=== PATIENT | female | born 1945 ===

== ENCOUNTER 2020-12-18 10:30 | Outpatient (REF) | payer MEDICARE, MEDICAID, SELFPAY ==
--- NOTE | ~2020-12-18 | US_ITS ---
EXAMINATION: US RETROPERITONEAL LIMITED (RENAL ONLY) CLINICAL INFORMATION: Calculus of kidney. COMPARISON: Renal ultrasound 11/28/2019 and 05/24/2015. X-ray abdomen KUB 11/24/2018. TECHNIQUE: Real-time imaging of the kidneys. FINDINGS: RIGHT KIDNEY: 8.4 x 4.9 x 4.6 cm (SAG x AP x TRV). The kidney is normal in size, contour, and echogenicity. Renal cortical thickness is normal. There are 2 small 2 mm stones in the mid and lower pole. No focal parenchymal lesions or hydronephrosis. LEFT KIDNEY: 9.0 x 4.4 x 4.3 cm (SAG x AP x TRV). The kidney is normal in size, contour, and echogenicity. Renal cortical thickness is normal. There is a 3 x 6 mm stone in the midpole. No focal parenchymal lesions or hydronephrosis. US/US renal BI IMPRESSION: Bilateral renal stones.
== END 2020-12-18 10:31 | disposition home or self-care (01) ==
LOC: HO.US 10:30
PROVIDERS: PCP Internal Medicine; Visit Provider Urology
DX: N20.0 Calculus of kidney (principal)
CPT/HCPCS: 76775

== ENCOUNTER → 2021-01-29 11:53 | Outpatient (BNVA) | payer MEDICARE, MEDICAID, SELFPAY | PROVIDERS: PCP Internal Medicine; Visit Provider Urology | CPT/HCPCS: Q3014 ==

== ENCOUNTER → 2021-07-22 10:33 | Outpatient (BNVA) | payer MEDICARE, MEDICAID, SELFPAY | PROVIDERS: PCP Internal Medicine | DX: N20.0 Calculus of kidney (principal); R35.0 Frequency of micturition | CPT/HCPCS: 99212 ==

== ENCOUNTER → 2021-09-20 12:52 | Outpatient (BNVA) | payer MEDICARE, MEDICAID, SELFPAY | PROVIDERS: PCP Internal Medicine | DX: R35.0 Frequency of micturition (principal); N20.0 Calculus of kidney | CPT/HCPCS: Q3014 ==

== ENCOUNTER 2021-12-16 11:33 | Outpatient (REF) | payer MEDICARE, MEDICAID, SELFPAY ==
--- NOTE | ~2021-12-16 | US_ITS ---
EXAMINATION: US RETROPERITONEAL LIMITED (RENAL ONLY) CLINICAL INFORMATION: Calculus of kidney. COMPARISON: Renal ultrasound 12/18/2020 and 11/28/2019. TECHNIQUE: Real-time imaging of the kidneys. FINDINGS: RIGHT KIDNEY: 9.3 x 5.5 x 5.2 cm (SAG x AP x TRV). The kidney is normal in size, contour, and echogenicity. Renal cortical thickness is normal. There are 2 nonobstructive echogenic calculi in the upper pole measuring 0.2 x 0.3 x 0.2 cm and lower pole measuring 0.3 x 0.2 x 0.3 cm. No caliectasis seen. No focal parenchymal lesions or hydronephrosis. LEFT KIDNEY: 9.2 x 5.2 x 4.4 cm (SAG x AP x TRV). The kidney is normal in size, contour, and echogenicity. Renal cortical thickness is normal. There is a nonobstructive echogenic stone in the upper pole measuring 0.4 x 0.3 x 0.3 cm. No caliectasis seen. No focal parenchymal lesions or hydronephrosis. US/US renal BI IMPRESSION: Bilateral nonobstructive echogenic renal calculi.
== END 2021-12-16 11:34 | disposition home or self-care (01) ==
LOC: HO.HMGCX 11:33
PROVIDERS: Visit Provider Urology
DX: N20.0 Calculus of kidney (principal)
CPT/HCPCS: 76775

== ENCOUNTER → 2022-01-30 10:50 | Outpatient (BNVA) | payer MEDICARE, MEDICAID, SELFPAY | PROVIDERS: PCP Internal Medicine; Visit Provider Urology | DX: R39.15 Urgency of urination (principal); R35.0 Frequency of micturition; N20.0 Calculus of kidney | CPT/HCPCS: 99212 ==

== ENCOUNTER 2022-08-26 13:25 | Outpatient (REF) | payer MEDICARE, MEDICAID, SELFPAY ==
--- NOTE | ~2022-08-26 | XR_ITS ---
EXAMINATION: XR ABDOMEN KUB CLINICAL INDICATION: Calculus of ureter. COMPARISON: Ultrasound abdomen 12/16/2021 and 09/01/2022. TECHNIQUE: AP view of the abdomen. FINDINGS: There is small 3 mm radiopaque calculi upper/mid pole left kidney. No additional radiopaque calculi seen. The bowel gas pattern is nonspecific. 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 No aggressive lytic or sclerotic process seen. SI joints are symmetrical. XR/XR KUB IMPRESSION: 1. There is a 3 mm radiopaque calculi upper/mid pole left kidney. 2. No additional radiopaque calculi seen.
== END 2022-08-26 13:26 | disposition home or self-care (01) ==
LOC: HO.US 13:25
PROVIDERS: PCP Internal Medicine; Visit Provider Urology
DX: N20.0 Calculus of kidney (principal); N20.1 Calculus of ureter
CPT/HCPCS: 74018

== ENCOUNTER 2022-09-01 16:03 | Outpatient (REF) | payer MEDICARE, MEDICAID, SELFPAY ==
--- NOTE | ~2022-09-01 | US_ITS ---
EXAMINATION: US RETROPERITONEAL LIMITED (RENAL ONLY) CLINICAL INFORMATION: Calculus of kidney. COMPARISON: X-ray KUB 08/26/2022. Renal ultrasound 12/16/2021 and 12/18/2020. TECHNIQUE: Real-time imaging of the kidneys. FINDINGS: RIGHT KIDNEY: 8.6 x 5.0 x 4.6 cm (SAG x AP x TRV). The kidney is normal in size, contour, and echogenicity. Renal cortical thickness is normal. No focal parenchymal lesions or hydronephrosis. 4 mm nonobstructing upper pole renal stone previously 3 mm and 4 mm nonobstructing lower pole renal stone, previously 3 mm. Additional 1 mm linear echogenic focus in the right lower pole possibly a vascular reflector versus an additional new stone. LEFT KIDNEY: 8.6 x 4.3 x 4.9 cm (SAG x AP x TRV). The kidney is normal in size, contour, and echogenicity. Renal cortical thickness is normal. No focal parenchymal lesions or hydronephrosis. 1 cm nonobstructing midpole renal stone, previously 4 mm. US/US renal BI IMPRESSION: 1. Bilateral nonobstructing renal stones measuring up to 1 cm on the left, increased from prior. 2. Additional 1 mm linear echogenic focus in the right lower pole possibly a vascular reflector versus an additional new stone.
== END 2022-09-01 16:04 | disposition home or self-care (01) ==
LOC: HO.US 16:03
PROVIDERS: PCP Internal Medicine; Visit Provider Urology
DX: N20.0 Calculus of kidney (principal)
CPT/HCPCS: 76775

== ENCOUNTER 2022-11-14 09:59 | Outpatient (AMB) | payer MEDICARE, MEDICAID, SELFPAY ==
--- NOTE | 2022-11-14 10:14 | MHC.OFFVIS ---
Intake Intake Visit Reasons: 1 yr follow up Intake Note: Patient is present for Follow Up Urology Med: Doxazosin, Vitamin B6, Trospium Antibiotic Allergy: None Blood Thinner: None Pharmacy: [facility] Allergies acetaminophen [Percocet] Allergy (Unknown, Verified 11/14/22 10:15) Unknown oxycodone [Percocet] Allergy (Unknown, Verified 11/14/22 10:15) Unknown Medication List - Last Reconciled 11/14/22 by Adán Donato MD amlodipine 5 mg PO DAILY atorvastatin 80 mg PO DAILY chlorthalidone 25 mg PO DAILY doxazosin 1 mg PO BEDTIME 30 days [id number] ala 200-25-25 mg (Odefsey) 1 tab PO DAILY meloxicam 7.5 mg PO DAILY metoprolol tartrate 50 mg PO DAILY pyridoxine (vitamin B6) 100 mg PO DAILY 90 days trospium 20 mg PO BID 30 days HPI HPI Comments History of Present Illness Details Ms Sebastian is a very pleasant female. She is a patient of Dr Warner. She is seen for the following urologic conditions. - nephrolithiasis - urinary urgency Has been on low-dose doxazosin with [facility] Nocturia 2-3 times per night Minimal stone burden on imaging Continue 12 month interval review Overactive bladder Previous trial oxybutynin [facility] Had initial success with fade Background HIV on combination therapy Trial low-dose alpha-nelly doxazosin 1 mg with [facility] per insurance Nephrolithiasis/Urolithiasis:? They are here for?further evaluation of nephrolithiasis ?Discussed imaging findings ?Continue with vitamin B6 ?Recommend to keep fluid intake.? Urolithiasis was diagnosed?a number of years ago.? The patient previously had kidney stones whose composition w?unknown.? Laboratory investigations include?no recent labs.? 24 Hour urine evaluation?none on file.? Prior treatment(s) include?observation, with dietary advice to increase fluids, decrease salt and watch protein intake ?11/30 vit B6 and Mag.? Prior imaging includes?a KUB x-ray 05/29 , showing radiodense stone(s), on the right, 2-5 mm ?09/29 , a KUB x-ray, showing radiodense stone(s), on the right, , 2-5 mm ?11/30 , a renal ultrasound, showing no evidence of stones ?12/01 , a KUB x-ray, showing radiodense stone(s) 2mm right ?12/02 , a KUB x-ray stable ?12/03 , a renal ultrasound, showing radiodense stone(s) - 3 mm left, 5 mm right - 01/03 renal ultrasound 6 mm left, 3 mm right - 01/04 renal ultrasound small 3 mm bilateral stones - 11/05 renal ultrasound bilateral small stones, KUB right stone 3 mm ? UA today shows?>7.0, specific gravity within normal range suggestive of adequate hydration today.? Current therapeutic plan will be?to continue with imaging surveillance.? [facility] Medical History Bilateral nephrolithiasis Urinary frequency Review of Systems Const Denies chills and Denies fever(s) Card Reports no additional complaints and Denies syncope Resp Denies cough GI Denies abdominal pain and Denies heartburn Reports as per HPI and Denies change in libido Neuro Denies syncope Psych Denies change in libido Endo Denies change in libido Physical Exam Const General: cooperative, healthy appearing, comfortable and no acute distress Orientation/consciousness: patient oriented x3 HEENT Face and sinus: Yes normal facial exam Mouth: moist mucous membranes Neck Neck: Yes normal visual inspection, Yes full ROM and Yes trachea midline Chest Chest palpation & inspection: normal inspection of the chest Resp Effort & Inspection: normal respiratory effort, able to speak in complete sentences and no respiratory distress GI Inspection: Yes normal to inspection Back/Spine/Pelvis Cervical Spine: normal cervical lordosis Thoracic/Lumbar Spine: thoracic and lumbar spine normal to inspection Skin General skin exam: no rashes or lesions noted Neuro General: patient oriented x3, gait normal, tone normal and moves all extremities Extrem General: Yes normal to inspection and Yes capillary refill normal Assessment & Plan Assessment & Plan (1) Urinary urgency: Code(s): R39.15 - Urgency of urination (2) Urinary frequency: Code(s): R35.0 - Frequency of micturition (3) Bilateral nephrolithiasis: Code(s): N20.0 - Calculus of kidney Plan Twelve month follow-up Orders: Orders US renal BI 364 Days N20.0 - Calculus of kidney Medications: Changed From doxazosin 1 mg PO BEDTIME 30 days 30 tabs 1RF N31.9 - Neuromuscular dysfunction of bladder, unspecified To doxazosin 1 mg PO BEDTIME 90 days 90 tabs 3RF N31.9 - Neuromuscular dysfunction of bladder, unspecified From trospium administer on an empty stomach 20 mg PO BID 30 days 60 tabs 1RF N20.0 - Calculus of kidney To trospium administer on an empty stomach 20 mg PO BID 90 days 180 tabs 3RF N20.0 - Calculus of kidney Refilled pyridoxine (vitamin B6) 100 mg PO DAILY 90 days 90 tabs 3RF N20.0 - Calculus of kidney Patient Instructions: Imaging studies, laboratory and physical exam results were discussed and reviewed in detail. No major barriers to patient understanding were identified. An opportunity to ask questions regarding the treatment plan was provided. All questions were answered. The patient expressed understanding and agreement with the above treatment plan. The patient is aware they should contact our office by phone for worsening of their current condition or the appearance of new urologic symptoms. Compliance is encouraged with any medications and followup testing that is ordered. It is a privilege to participate in the urologic care of your patient. If you have any questions or concerns regarding treatment for the above conditions, or other urologic issues, please do not hesitate to contact me. The office telephone contact is [phone]. This note is constructed using voice recognition software. While every effort has been made to ensure accuracy veneer jointer offbearer errors may have been included. Yours sincerely, Dr Adán Donato MD, [facility] - Urology Providers of Expert, Compassionate Care for the Genitourinary System Coding Level of Care Code Est Pt Level 4 (35502) Diagnoses Urinary urgency R39.15 Urinary frequency R35.0 Bilateral nephrolithiasis N20.0
== END 2022-11-14 10:44 | disposition home or self-care (01) ==
PROVIDERS: PCP Internal Medicine; Visit Provider Urology
DX: R39.15 Urgency of urination (principal); R35.0 Frequency of micturition; N20.0 Calculus of kidney
CPT/HCPCS: 99214

== ENCOUNTER → 2022-11-14 09:59 | Outpatient (BNVA) | payer MEDICARE, MEDICAID, SELFPAY | PROVIDERS: Visit Provider Urology | DX: N20.0 Calculus of kidney (principal); R39.15 Urgency of urination; R35.0 Frequency of micturition | CPT/HCPCS: 99212 ==

== ENCOUNTER 2023-11-10 10:25 | Outpatient (REF) | payer MEDICARE, MEDICAID, SELFPAY ==
--- NOTE | ~2023-11-10 | US_ITS ---
EXAMINATION: US RETROPERITONEAL COMPLETE (RENAL) CLINICAL INFORMATION: Calculus of kidney. COMPARISON: 09/01/2022. TECHNIQUE: Real-time imaging of the kidneys and bladder. Limited visualization due to bowel gas. FINDINGS: RIGHT KIDNEY: 8.9 x 5.8 x 5.7 cm (SAG x AP x TRV). No hydronephrosis. Renal calculi measure 6 mm lower pole, 6 mm mid pole, and 6 mm lower pole. Limited visualization. Renal cortical thickness is normal. LEFT KIDNEY: 9.1 x 5.5 x 4.7 cm (SAG x AP x TRV). No hydronephrosis. 6 mm mid pole calculus. Limited visualization. Renal cortical thickness is normal. US/US renal BI IMPRESSION: Bilateral nephrolithiasis. No hydronephrosis. Electronically signed by: Liset Montgomery MD 11/18/2023 10:30 AM EDT RP
== END 2023-11-10 10:26 | disposition home or self-care (01) ==
LOC: HO.US 10:25
PROVIDERS: PCP Internal Medicine; Visit Provider Urology
DX: N20.0 Calculus of kidney (principal)
CPT/HCPCS: 76775

== ENCOUNTER 2023-11-17 10:30 | Outpatient (AMB) | payer MEDICARE, MEDICAID, SELFPAY ==
--- NOTE | 2023-11-17 10:34 | MHC.OFFVIS ---
Intake Visit Reasons: 1y/US Intake Note: Patient is present for 1Y Follow Up/US Urology Med: Doxazosin, Vitamin B6, Trospium Antibiotic Allergy: None Blood Thinner: None Educational Technology Coordinator Required: No Allergies acetaminophen [Percocet] Allergy (Unknown, Verified 11/17/23 10:35) Unknown oxycodone [Percocet] Allergy (Unknown, Verified 11/17/23 10:35) Unknown Medication List - Last Reconciled 11/17/23 by Adán Donato MD amlodipine 5 mg PO DAILY atorvastatin 80 mg PO DAILY chlorthalidone 25 mg PO DAILY doxazosin 1 mg PO BEDTIME 90 days hiamhhjmfu-mdxfsnjg-kmptgp ala 200-25-25 mg (Odefsey) 1 tab PO DAILY meloxicam 7.5 mg PO DAILY metoprolol tartrate 50 mg PO DAILY pyridoxine (vitamin B6) 100 mg PO DAILY 90 days trospium 20 mg PO BID 90 days HPI Comments Details: Ms Sebastian is a very pleasant female. She is a patient of Dr Warner. She is seen for the following urologic conditions. - nephrolithiasis - urinary urgency Discussed ultrasound findings Has been on low-dose doxazosin with [facility] Nocturia 2-3 times per night Continues with mild stone burden and is on B6 Twelve month follow-up imaging Overactive bladder Previous trial oxybutynin [facility] Had initial success with fade Background HIV on combination therapy Trial low-dose alpha-nelly doxazosin 1 mg with [facility] per insurance Nephrolithiasis/Urolithiasis:? They are here for?further evaluation of nephrolithiasis ?Discussed imaging findings ?Continue with vitamin B6 ?Recommend to keep fluid intake.? Urolithiasis was diagnosed?a number of years ago.? The patient previously had kidney stones whose composition w?unknown.? Laboratory investigations include?no recent labs.? 24 Hour urine evaluation?none on file.? Prior treatment(s) include?observation, with dietary advice to increase fluids, decrease salt and watch protein intake ?11/30 vit B6 and Mag.? Prior imaging includes?a KUB x-ray 05/29 , showing radiodense stone(s), on the right, 2-5 mm ?09/29 , a KUB x-ray, showing radiodense stone(s), on the right, , 2-5 mm ?11/30 , a renal ultrasound, showing no evidence of stones ?12/01 , a KUB x-ray, showing radiodense stone(s) 2mm right ?12/02 , a KUB x-ray stable ?12/03 , a renal ultrasound, showing radiodense stone(s) - 3 mm left, 5 mm right - 01/03 renal ultrasound 6 mm left, 3 mm right - 01/04 renal ultrasound small 3 mm bilateral stones - 11/05 renal ultrasound bilateral small stones, KUB right stone 3 mm - 11/06 renal ultrasound bilateral small stones, right 6 mm ? UA today shows?>7.0, specific gravity within normal range suggestive of adequate hydration today.? Current therapeutic plan will be?to continue with imaging surveillance.? [facility] Medical History Bilateral nephrolithiasis Urinary frequency Results AMB Urinalysis, Automated UA Leukoctes 0 Shruthi/uL Last Edit by ADEN Nelson on 11/17/23 10:49 UA Nitrite Negative Last Edit by ADEN Nelson on 11/17/23 10:49 UA Urobilinogen 0.2 mg/dL Last Edit by ADEN Nelson on 11/17/23 10:49 UA Protein 0 mg/dL Last Edit by ADEN Nelson on 11/17/23 10:49 UA pH 6.5 Last Edit by ADEN Nelson on 11/17/23 10:49 UA Blood 0 Los/uL Last Edit by ADEN Nelson on 11/17/23 10:49 UA Specific [place] 1.010 Last Edit by ADEN Nelson on 11/17/23 10:49 UA Ketone Negative Last Edit by ADEN Nelson on 11/17/23 10:49 UA Bilirubin 0 mg/dL Last Edit by ADEN Nelson on 11/17/23 10:49 UA Glucose 0 mg/dL Last Edit by ADEN Nelson on 11/17/23 10:49 Results Reviewed Results Reviewed: Laboratory Last Values Urine pH (Auto) 6.5 11/17/23 10:48 Specific [place] (Auto) 1.010 11/17/23 10:48 Urine Protein (Auto) 0 mg/dL 11/17/23 10:48 Glucose (UA)(Auto) 0 mg/dL 11/17/23 10:48 Urine Ketones (Auto) Negative 11/17/23 10:48 Urine Blood (Auto) 0 Los/uL 11/17/23 10:48 Urine Nitrite (Auto) Negative 11/17/23 10:48 Urine Bilirubin (Auto) 0 mg/dL 11/17/23 10:48 Urine Urobilinogen (Auto) 0.2 mg/dL 11/17/23 10:48 Leukocyte Esterase (Auto) 0 Shruthi/uL 11/17/23 10:48 Assessment & Plan Assessment & Plan (1) Bilateral nephrolithiasis: Code(s): N20.0 - Calculus of kidney Category: Medical (2) Urinary frequency: Code(s): R35.0 - Frequency of micturition Category: Medical (3) Urinary urgency: Code(s): R39.15 - Urgency of urination Category: Medical Plan Twelve month follow-up imaging Orders: Orders AMB Urinalysis Automated Today Z13.9 - Encounter for screening, unspecified US renal BI 12 Months N20.0 - Calculus of kidney Medications: Refilled pyridoxine (vitamin B6) 100 mg PO DAILY 90 days 90 tabs 3RF N20.0 - Calculus of kidney trospium administer on an empty stomach 20 mg PO BID 90 days 180 tabs 3RF N20.0 - Calculus of kidney doxazosin 1 mg PO BEDTIME 90 days 90 tabs 3RF N31.9 - Neuromuscular dysfunction of bladder, unspecified Patient Instructions: Imaging studies, laboratory and physical exam results were discussed and reviewed in detail. No major barriers to patient understanding were identified. An opportunity to ask questions regarding the treatment plan was provided. All questions were answered. The patient expressed understanding and agreement with the above treatment plan. The patient is aware they should contact our office by phone for worsening of their current condition or the appearance of new urologic symptoms. Compliance is encouraged with any medications and followup testing that is ordered. It is a privilege to participate in the urologic care of your patient. If you have any questions or concerns regarding treatment for the above conditions, or other urologic issues, please do not hesitate to contact me. The office telephone contact is [phone]. This note is constructed using voice recognition software. While every effort has been made to ensure accuracy lead net software developer errors may have been included. Yours sincerely, Dr Adán Donato MD, [facility] - Urology Providers of Expert, Compassionate Care for the Genitourinary System Coding Level of Care Code Est Pt Level 4 (43437) Diagnoses Bilateral nephrolithiasis N20.0 Urinary frequency R35.0 Urinary urgency R39.15
== END 2023-11-17 11:04 | disposition home or self-care (01) ==
PROVIDERS: PCP Internal Medicine; Visit Provider Urology
DX: N20.0 Calculus of kidney (principal); R35.0 Frequency of micturition; R39.15 Urgency of urination; Z13.9 Encounter for screening, unspecified
CPT/HCPCS: 99214

== ENCOUNTER → 2023-11-17 10:30 | Outpatient (BNVA) | payer MEDICARE, MEDICAID, SELFPAY | PROVIDERS: PCP Internal Medicine; Visit Provider Urology | DX: N20.0 Calculus of kidney (principal); R35.0 Frequency of micturition; R39.15 Urgency of urination | CPT/HCPCS: 81003; 99212 ==